=== PATIENT | female | born 1940 | race African-American/Black ===

== ENCOUNTER → 2021-04-26 | Outpatient (CLI) | payer MEDICARE, OTHER ==
[2019-02-27 19:40] VITALS: BP 169/92
[~2021-04-26] MED LIST: FLUT9.9S NS; MECL-75 PO
--- NOTE | 2021-04-26 13:19 | KCIC ---
EXAM: Cervical spine, 3 views; left hip and pelvis, 2 views. HISTORY: Pain. COMPARISON: None. FINDINGS: Cervical spine: 3 views of the cervical spine are obtained. There is no listhesis. The vertebral bodi es are normal in height. There is degenerative endplate remodeling with disc space narrowing and oste ophytosis at C4-C5, C5-C6 and C6-C7. There is multilevel facet arthropathy. Pelvis and left hip: A frontal view of the pelvis and frog-leg view of the left hip are obtained. The re is no fracture, dislocation or subluxation. The femoral heads are normal in configuration. IMPRESSION: 1. Multilevel degenerative change involving the cervical spine, described above. 2. No acute osseous finding. Electronically signed by: Yolanda De La Cruz MD (04/26/2021 1:16 PM) [id number]
== END ==
LOC: KCIC 11:31
PROVIDERS: ATTEND Family Medicine
DX: M47.812 Spondylosis without myelopathy or radiculopathy, cervical region (principal); M48.02 Spinal stenosis, cervical region; M25.552 Pain in left hip
CPT/HCPCS: 72040; 73501

== ENCOUNTER 2021-06-02 16:10 | Inpatient (IN) | payer MEDICARE, OTHER ==
[~2021-06-02] VITALS: Ht 167.6 cm; Wt 91.0 kg
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
[2021-06-02] MEDS ORDERED: HYDROcodone/APAP 10/325 1 TAB TABLET PO ONE (17:30)
[2021-06-02] MEDS ORDERED: IBUPROFEN 400 MG TABLET. PO ONE (17:30)
--- NOTE | 2021-06-02 18:16 | RAD ---
Examination: CT left hip without contrast HISTORY: History of fall, left hip pain COMPARISON: None TECHNIQUE: Axial CT images of the left hip were performed without contrast. Coronal and sagittal refo rmats are performed Exposure: One or more of the following individualized dose reduction techniques were utilized for thi s examination: 1. Automated exposure control 2. Adjustment of the mA and/or kV according to patient size 3. Use of iterative reconstruction technique FINDINGS: Left femoral head is within the acetabulum.Mild joint space loss left hip joint likely degenerative c hanges. There is no obvious acute fracture identified. The visualized soft tissue grossly appears unr emarkable. IMPRESSION: 1. No acute osseous findings. 2. Mild degenerative changes left hip joint. Electronically signed by: Geronimo Schneider MD (06/02/2021 6:14 PM) [id number]
--- NOTE | 2021-06-02 18:58 | RAD ---
Examination: 2 views of the left hip HISTORY: History of injury left hip COMPARISON: None available FINDINGS: The left femoral head is within the acetabulum. Mild joint space loss left hip joint likely degenerat jamaal changes. IMPRESSION: No acute osseous findings. Electronically signed by: Geronimo Schneider MD (06/02/2021 6:56 PM) [id number]
[2021-06-02 20:53] LABS: BASO % 1 % (0-3); EOS % 0 % (0-3); HEMATOCRIT 34.2 % (36.0-47.0); HEMOGLOBIN 11.3 g/dL (12.0-15.5); LYMPH # 1.8 x10^3/uL (1.0-4.8); LYMPH % 28 % (24-48); MEAN CORPUSCULAR HEMOGLOBIN 30 pg (25-35); MEAN CORPUSCULAR HGB CONC 33 g/dL (31-37); MEAN CORPUSCULAR VOLUME 91 fL (79-100); MONO # 0.4 x10^3/uL (0.0-1.1); MONO % 7 % (0-9); NEUT # 4.1 x10^3/uL (1.8-7.7); NEUT % 64 % (31-73); PLATELET COUNT 213 x10^3/uL (140-400); RED BLOOD COUNT 3.75 x10^6/uL (3.50-5.40); RED CELL DISTRIBUTION WIDTH 13.2 % (11.5-14.5); WHITE BLOOD COUNT 6.4 x10^3/uL (4.0-11.0)
[2021-06-02 21:01] LABS: CALCIUM 9.1 mg/dL (8.5-10.1); CREATININE 0.9 mg/dL (0.6-1.0); GFR 73.3; POTASSIUM 3.6 mmol/L (3.5-5.1)
[2021-06-02] MEDS ORDERED: MAGNESIUM HYDROXIDE 2,400 MG/30 ML ORAL.SUSP. PO PRN (21:15)
[2021-06-02] MEDS ORDERED: HYDROcodone/APAP 5/325MG 1 TAB TABLET PO PRN (21:15)
[2021-06-02] MEDS ORDERED: ACETAMINOPHEN 325 MG TABLET. PO PRN (21:15)
[2021-06-02] MEDS ORDERED: CALCIUM CARBONATE 500 MG TAB.CHEW PO PRN (21:15)
[2021-06-02] MEDS ORDERED: ELECTROLYTE (NON-ICU) PROTOCOL. MC PRN (21:15)
[2021-06-02] MEDS ORDERED: ONDANSETRON PF 4 MG/2 ML VIAL. IVP PRN (21:15)
[2021-06-02] MEDS ORDERED: ZOLPIDEM 5 MG TABLET. PO PRN (21:15)
[2021-06-02] MEDS ORDERED: LACTULOSE 20 GM/30 ML SOLUTION. PO PRN (21:15)
[2021-06-02] MEDS ORDERED: oxyCODONE IR 5 MG TABLET PO PRN (21:15)
[2021-06-02] MEDS ORDERED: BISACODYL 10 MG SUPP.RECT. PR PRN (21:15)
[2021-06-02] MEDS ORDERED: MORPHINE SULFATE 2 MG/ML INJ. IV PRN (21:15)
[2021-06-02] MEDS ORDERED: MAG HYDROX/ALUMINUM HYD/SIMETH 30 ML ORAL.SUSP PO PRN (21:15)
[2021-06-02] MEDS ORDERED: MECLIZINE HCL 12.5 MG TABLET. PO PRN (21:45)
[2021-06-02] MEDS ORDERED: HEPARIN for SUB-Q USE 5,000 UNIT/ML VIAL. SQ SCH (22:00)
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
[2021-06-02 23:41] VITALS: BP 164/78
[2021-06-03 03:11] VITALS: BP 142/67
[2021-06-03 06:25] VITALS: BP 144/63
[2021-06-03] MEDS: SENNOSIDES/DOCUSATE 8.6/50MG TABLET. PO SCH ×2 (08:18→21:00)
[2021-06-03] MEDS: ENOXAPARIN 40 MG/0.4 ML SYRINGE. SQ SCH (08:19)
[2021-06-03] MEDS: FLUTICASONE 50MCG/NASAL SPRAY 16GM BOTTLE. NS SCH (08:26)
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
[2021-06-03 11:00] VITALS: BP 145/65
[2021-06-03] MEDS ORDERED: LIDOCAINE (700MG/PATCH) PATCH. TD ONE (14:30)
[2021-06-03] MEDS ORDERED: IBUPROFEN 200 MG TABLET. PO ONE (14:30)
[2021-06-03] MEDS ORDERED: IBUPROFEN 400 MG TABLET. PO PRN (14:30)
[2021-06-03 15:00] VITALS: BP 152/70
[2021-06-03 19:27] VITALS: BP 127/57
--- NOTE | 2021-06-03 22:08 | NUR ---
CHANGE OF CARE NOTE: Pt sitting up in chair sleeping assessment completed will resume care and continue to monitor pt. Call light in reach.
[2021-06-03 23:00] VITALS: BP 128/60
[2021-06-04 02:31] VITALS: BP 134/63
[2021-06-04 07:00] VITALS: BP 139/67
[2021-06-04] MEDS: FLUTICASONE 50MCG/NASAL SPRAY 16GM BOTTLE. NS SCH (09:00)
[2021-06-04 11:00] VITALS: BP 140/65
[2021-06-04] MEDS: SENNOSIDES/DOCUSATE 8.6/50MG TABLET. PO SCH ×2 (11:48→20:47)
[2021-06-04] MEDS: ENOXAPARIN 40 MG/0.4 ML SYRINGE. SQ SCH (11:49)
--- NOTE | 2021-06-04 12:43 | NUR ---
SW following. Discussed with Diana (CORRINA), chart reviewed. Pt from home. PT/OT ordered. Pt not yet ready for discharge. SW will continue to follow.
[2021-06-04 12:53] LABS: CALCIUM 9.2 mg/dL (8.5-10.1); CREATININE 0.8 mg/dL (0.6-1.0); GFR 83.9
[2021-06-04 12:55] LABS: POTASSIUM 4.4 mmol/L (3.5-5.1)
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
[2021-06-04 14:17] VITALS: BP 142/65
--- NOTE | 2021-06-04 16:42 | NUR ---
Patient transferred to room 408 per doctor ordered.
[2021-06-04] MEDS: LIDOCAINE (700MG/PATCH) PATCH. TD SCH ×4 (18:00→20:48)
[2021-06-04 19:42] VITALS: BP 118/67
--- NOTE | 2021-06-04 20:48 | NUR ---
lidoderm patch applied by YVAN Coffey, see emar
[2021-06-04 23:00] VITALS: BP 112/64
[2021-06-05 07:00] VITALS: BP 129/69
[2021-06-05] MEDS ORDERED: PATCH REMOVAL. MC SCH (09:00)
[2021-06-05] MEDS: SENNOSIDES/DOCUSATE 8.6/50MG TABLET. PO SCH (09:34)
[2021-06-05] MEDS: FLUTICASONE 50MCG/NASAL SPRAY 16GM BOTTLE. NS SCH (09:35)
[2021-06-05] MEDS: ENOXAPARIN 40 MG/0.4 ML SYRINGE. SQ SCH (09:36)
[2021-06-05 11:00] VITALS: BP 129/58
--- NOTE | 2021-06-05 12:22 | NUR ---
SW following. Discussed with RN, therapy recommending SNF. SW met with pt, pt does not want to go to SNF, wants to go home and is agreeable to home health. Pt stating she isn't ready to go home yet as she can't completely walk on her left leg. Dr. Garza seeing patient and will encourage pt to go to SNF. SW will continue to follow.
--- NOTE | 2021-06-05 14:22 | NUR ---
Pt.'s family called nurses station, stated she wants to go home. Discharge vs AMA process explained to family, they verbalized understanding. After speaking with pt, she stated she does not like Dr. Garza and does not want to go to a rehab facility. She stated she wants to go see Dr. Gomez. Dr. Garza notified of pt's wishes, he stated he is not going to d/c pt home due to her needing SNU placement.
--- NOTE | 2021-06-05 14:30 | NUR ---
Pt. informed of Dr. Garza not wanting her to d/c home today but to SNU. Pt. stating she does not want a facility and is going home today. AMA process explained to pt. Pt. refusing to accept that she is not being discharged home today and offered the option of leaving AMA or remaining in the hospital to follow current dr's orders of possible SNU placement. Pt. stating she does not trust Dr. Garza and stating he does not know anything he is talking about. Pt. reeducated on Dr. Garza's roll in her care, reinforcement needed. Pt. stated she would think about her options and let the RN know her decision.
--- NOTE | 2021-06-05 15:14 | PDOC ---
[facility] PROGRESS NOTE Date of Service DOS: DATE: 06/05/21 TIME: 15:01 Chief Complaint Chief Complaint Left hip trauma - deep thigh brusie Intractable left lower extremity pain secondary to trauma History of CVA with no residual deficits History of essential hypertension hyperglycemia Obese, BMI 32 History of Present Illness History of Present Illness 06/05/2021 No acute events overnight. Patient seen and examined on recliner. Patient having minimal pain 2 out of 10 during transfers between bed and chair. She does not have much pain while sitting. While working with physical therapy on the they recommended SNF placement. She has the most significant pain on the posterior thigh apparently. There is no deformities or obvious ecchymosis. Patient's baseline at home she is able to cook for self and clean and mow the lawn. However after reading physical therapy notes it does not seem she is even close to her baseline and I do agree with the physical therapy that she needs more rehab. It was explained to the patient that I would recommend her to go to a nursing facility and she disagreed with me. She was more concerned not about her disposition but mainly because she thought she had saw me in the emergency department on Friday even though I did not admit her to the hospital and she said that I was lying. From this point up on from the conversation, patient was distrustful with me and demanded to see Dr. Gomez which is her PCP. It was explained in detail to her that Dr. Gomez does not have privileges at this [facility] and our hospitalist group admits for him. She did not accept this fact and was in much denial that she did not want to see me as her physician. After our conversation, apparently the patient did call the family and wanted to go home despite the fact that I had recommended her to go to a nursing facility. I do not believe she is safe for discharge to home by herself or even with home health due to the fact that her dementia is somewhat more severe than I had originally thought. At this point I believe patient does want to leave AGAINST MEDICAL ADVICE. In addition to my E/M visit, advance care planning done with A total time of 20 minutes was spent from 1:00 to 130 face to face in discussion regarding the patient's goals of care, CODE STATUS. 06/04/2021 Patient seen and examined Discussed with RN Chart reviewed She still has a lot of pain Vitals/I&O Vitals/I&O: Vital Signs Date Time Temp Pulse Resp B/P (MAP) Pulse Ox O2 Delivery O2 Flow Rate FiO2 06/05/21 11:00 97.9 56 20 129/58 (81) 98 Room Air 97.9 I & O 06/04/21 06/04/21 06/05/21 15:00 23:00 07:00 Intake Total 500 ml 100 ml 150 ml Balance 500 ml 100 ml 150 ml Physical Exam General: Alert, Cooperative, No acute distress Heart: Regular rate, Normal S2 Lungs: Wheezing Abdomen: Soft Extremities: No clubbing Skin: No rashes, No breakdown Comment Review of Relevant I have reviewed the following items dori (where applicable) has been applied. Medications: Current Medications Medications (Trade) Dose Ordered Sig/Denisha Route PRN Reason Start Time Stop Time Status Last Admin Dose Admin Miscellaneous (Lidoderm Patch Removal) 1 ea DAILY MC 06/05/21 09:00 06/05/21 09:00 Lidocaine (Lidoderm) 2 patch QHS TD 06/04/21 19:30 06/04/21 19:30 Justifications for Admission Other Justification intracdtable pain XIOMARA CHANDLER MD Jun 05, 2021 15:14
--- NOTE | 2021-06-05 16:56 | NUR ---
Pt. will be leaving AMA , awaiting for ride.
--- NOTE | 2021-06-05 17:15 | NUR ---
Pt. walked out per YVAN Garcia and security via . Pt. has walker for home.
--- NOTE | 2021-06-05 18:20 | PDOC3 ---
[facility]-Discharge Summary Date of Admission: Date of Admission: Jun 02, 2021 Date of Discharge: Date of Discharge: Jun 05, 2021 Discharge Diagnosis: Discharge Diagnosis: Left hip trauma - deep thigh soft tissue ecchymosis Intractable left lower extremity pain secondary to trauma History of CVA with no residual deficits History of essential hypertension hyperglycemia Obese, BMI 32 Hospital Course: Hospital Course: 06/05/2021 No acute events overnight. Patient seen and examined on recliner. Patient having minimal pain 2 out of 10 during transfers between bed and chair. She does not have much pain while sitting. While working with physical therapy on the they recommended SNF placement. She has the most significant pain on the posterior thigh apparently. There is no deformities or obvious ecchymosis. Patient's baseline at home she is able to cook for self and clean and mow the lawn. However after reading physical therapy notes it does not seem she is even close to her baseline and I do agree with the physical therapy that she needs more rehab. It was explained to the patient that I would recommend her to go to a nursing facility and she disagreed with me. She was more concerned not about her disposition but mainly because she thought she had saw me in the emergency department on Friday even though I did not admit her to the hospital and she said that I was lying. From this point up on from the conversation, patient was distrustful with me and demanded to see Dr. Gomez which is her PCP. It was explained in detail to her that Dr. Gomez does not have privileges at this hospital and our hospitalist group admits for him. She did not accept this fact and was in much denial that she did not want to see me as her physician. After our conversation, apparently the patient did call the family and wanted to go home despite the fact that I had recommended her to go to a nursing facility. I do not believe she is safe for discharge to home by herself or even with home health due to the fact that her dementia is somewhat more severe than I had originally thought. At this point I believe patient does want to leave AGAINST MEDICAL ADVICE. In addition to my E/M visit, advance care planning done with A total time of 20 minutes was spent from 1:00 to 130 face to face in discussion regarding the patient's goals of care, CODE STATUS. 06/04/2021 Patient seen and examined Discussed with RN Chart reviewed She still has a lot of pain Patient decided to Leave AMA Disposition: Disposition/Orders: Other (left against medical advice) Activity: Activity: Resume previous activity Diet: Diet: Cardiac Medications: Home Meds Active Scripts Meclizine Hcl (MECLIZINE HCL) 25 Mg Tablet, 1 TAB PO PRN TID, #30 TAB Prov:BITA GOMEZ MD 12/29/14 Fluticasone Propionate (Flonase Allergy Relief) 9.9 Ml [place].susp, 9.9 ML NS DAILY, #1 Prov:BITA GOMEZ MD 12/29/14 Scheduled Fluticasone Propionate (Flonase Allergy Relief), 9.9 ML NS DAILY Meclizine Hcl (Meclizine Hcl), 1 TAB PO PRN TID Total Time: Total Time: Total time spent was 33 minutes in preparing scripts, discharge planning with SW and RN, and preparing this discharge summary. Justicifation of Admission Dx: Justifications for Admission: Justification of Admission Dx: Yes (Intractable left lower extremitty pain) XIOMARA CHANDLER MD Jun 05, 2021 18:20
--- NOTE | 2021-06-06 14:13 | NUR ---
[facility] following. SW noticed pt had left AMA last evening with no home services. Pt had been agreeable to home health during SW discussion prior to Dr. Garza meeting with pt. SW believes pt would benefit from home health services and asked Yu Alford RN to reach out to patient at home today to discuss and determine if pt is still agreeable. [facility] is able to get home health orders from Dr. Gomez, pt's PCP. No further SW needs.
== END 2021-06-05 17:53 | disposition left against medical advice (07) | DRG 914 ==
LOC: ER 16:10 → 6 SOUTH 21:26 → 4 NORTH 06-04 16:56
PROVIDERS: ADMIT Internal Medicine; ATTEND Internal Medicine
DX: S79.912A Unspecified injury of left hip, initial encounter (principal); R73.9 Hyperglycemia, unspecified; E66.9 Obesity, unspecified; Z68.32 Body mass index [BMI] 32.0-32.9, adult; F03.90 Unspecified dementia, unspecified severity, without behavioral disturbance, psychotic disturbance, mood disturbance, and anxiety; I10 Essential (primary) hypertension; Z86.73 Personal history of transient ischemic attack (TIA), and cerebral infarction without residual deficits; Z88.6 Allergy status to analgesic agent; Z88.5 Allergy status to narcotic agent; Y08.89XA Assault by other specified means, initial encounter; Y93.89 Activity, other specified; Y92.89 Other specified places as the place of occurrence of the external cause; Y99.8 Other external cause status
CPT/HCPCS: 36415; 73502; 73700; 80048; 82550; 83036; 85025; 87426; 96374; 96375; J1650; J2270; J2405; U0003; U0005; 97116-GP; 97530-GP; 97535-GO; 99285-25; G0378